=== PATIENT | female | born 1955 | race Caucasian/White ===

== ENCOUNTER 2023-05-18 12:26 | Outpatient (CLI) | payer OTHER, SELFPAY ==
--- NOTE | 2023-05-18 12:30 | ECG_ITS ---
Measurements Intervals [place] Rate: 83 P: 57 [place]: 199 QRS: -37 QRSD: 104 T: 23 QT: 368 QTc: 433 Interpretive Statements SINUS RHYTHM LEFT AXIS DEVIATION LOW QRS VOLTAGE IN PRECORDIAL LEADS INCOMPLETE RIGHT BUNDLE BRANCH BLOCK BASELINE ARTIFACT- I, II, III, AVR, AVL, AVF, V3 BORDERLINE ECG NO PREVIOUS ECG AVAILABLE FOR COMPARISON Electronically Signed On 05-18-2023 12:51:08 CDT by Sanjeev Rashid D.O.
[2023-05-18 13:06] LABS: Anion Gap 6 mmol/L (8-16); Blood Urea Nitrogen 24 mg/dL (7-17); Calcium 9.7 mg/dL (8.4-10.2); Carbon Dioxide 29 mmol/L (22-30); Chloride 104 mmol/L (98-107); Estimated Glomerular Filt Rate > 60; Glucose 89 mg/dL (65-110); Potassium 4.1 mmol/L (3.4-5.0); Sodium 139 mmol/L (137-145)
[2023-05-18 13:07] LABS: Alanine Aminotransferase 30 U/L (6-35); Albumin Level 4.5 g/dL (3.5-5.1); Alkaline Phosphatase 92 U/L (38-126); Amylase 67 U/L (30-110); Aspartate Amino Transferase 27 U/L (14-36); Bilirubin,Total 0.5 mg/dL (0.2-1.3); Lipase 70 U/L (23-300)
== END 2023-05-18 12:27 | disposition home or self-care (01) ==
LOC: ANHSURGERY 12:31
PROVIDERS: Anesthesiology; PCP Internal Medicine; Visit Provider Surgery
DX: Z01.818 Encounter for other preprocedural examination (principal); Z79.899 Other long term (current) drug therapy; I10 Essential (primary) hypertension; K80.20 Calculus of gallbladder without cholecystitis without obstruction; I45.19 Other right bundle-branch block; R94.31 Abnormal electrocardiogram [ECG] [EKG]
CPT/HCPCS: 36415; 80048; 80076; 82150; 83690; 86850; 86900; 86901; 93005

== ENCOUNTER 2023-05-19 02:48 | Day surgery (SDC) | payer OTHER, SELFPAY ==
[2023-05-10 10:59] VITALS: BMI 54.4
--- NOTE | 2023-05-10 11:11 | PC.NURSE ---
PRE-OP INSTRUCTIONS, PLEASE READ CAREFULLY Report to the Outpatient Waiting Room, entrance under the green pavilion located off [facility], at time _0730_ on date _05/19/23_. Planned Procedure Time: _0930_. Time changes happen often and if your time is changed the preop area will call you the afternoon before. - You and your visitor will be asked to self-screen and do not enter if you have any COVID symptoms. - A mask is optional within the hospital at this time. Patients may have clear liquids (water, carbonated beverages, clear teas, apple juice) until 3 hours prior to surgery (0630 AM) with a maximum of 20 ounces. - No food from midnight until time of surgery Take the following medications with a SIP of water the morning of surgery: _INHALER, BUSPIRONE, DULOXETINE, GABAPENTIN, & LORAZEPAM, ALBUTEROL INHALER IF NEEDED_ DO NOT STOP ANY OF YOUR OTHER PRESCRIPTION MEDICATIONS PRIOR TO SURGERY ?EXCEPT THE FOLLOWING Medications to discontinue per ANESTHESIA - _MULTIVITAMIN 3 DAYS PRIOR TO SURGERY, Date to take last dose 05/15/23_ Please no make-up, nail vietnamese, hairspray, perfume, deodorant, or body powder the day of surgery. No jewelry (including any body piercings) or valuables the day of surgery, leave them at home. Please take a shower or bath the night before, or the morning of, surgery with an antibacterial soap. Wear comfortable, loose fitting clothing. - Jewelry must be removed prior to entering the operating room. Rings and piercings that are not removed may be cut off. - The hospital will not accept responsibility for valuables. - Please leave all valuables, including medications, at home the day of surgery. If you are going home after surgery, a licensed medical driver must drive you home. - NO public transportation without another adult if you receive anesthesia. - We recommend that an adult stay with you for 24 hours following discharge. - We also recommend that you do not drive, make important decision, drink alcoholic beverages, or take any drugs that were not prescribed by your health care provider for at least 24 hours after your discharge time. Follow any additional instructions given to you from your surgeon. If you or anyone in your household have experienced Covid symptoms in the past week, please notify your surgeon or the nurse liaison at the phone number below for possible testing. Telephone instructions given to _PATIENT_and asked if any additional questions and then verbalized understanding. Patient advised to call surgeon office or pre surgery nurse liaison [phone] if any additional questions.
[2023-05-19] VITALS (22 sets, daily range): BP systolic 129–187; BP diastolic 59–99; PULSE 59–97; RESP 12–26; TEMP 36.1–36.6; O2SAT 92–100
[2023-05-19] MEDS: INDOCYANINE GREEN 25 MG VIAL WITH DILUENT 3.75 MG IV PUSH (08:00)
[2023-05-19] MEDS: LACTATED RINGERS 1,000 ML 30 ML IV CONT ×2 (08:00→11:37)
--- NOTE | 2023-05-19 08:54 | WPDANESEPPF ---
Anes - Initial Pre Proc Eval Procedure: Operation Date: 05/19/23 09:30 Proposed Procedures p Laparoscopic Cholecystectomy Davinci Assisted - Eliceo Jerry DO Date/Time: 05/19/23 08:54 Surgeon: Eliceo Jerry DO Pre Op Diagnosis: symptomatic cholelithiasis Patient Data Age: 68 Gender: F Height: 1.47 m Weight: 118.18 kg Allergies Allergy/AdvReac Type Severity Reaction Status Date / Time azithromycin Allergy Severe RASH Verified 05/10/23 10:52 Penicillins Allergy Severe THROAT Verified 05/10/23 10:52 SWELLING Home Medications Medication Instructions Recorded Confirmed Type albuterol (refill) 90 90 mcg inhalation PRN PRN Wheezing 04/29/23 05/10/23 History mcg/actuation aerosol inhaler budesonide-formoterol HFA 160 1 inh inhalation ONCE 04/29/23 05/10/23 History mcg-4.5 mcg/actuation aerosol inhaler (Symbicort) buspirone 15 mg tablet 15 mg PO DAILY 04/29/23 05/10/23 History cholecalciferol (vitamin D3) 50 50 mcg PO DAILY 04/29/23 05/10/23 History mcg (2,000 unit) capsule duloxetine 60 mg capsule,delayed 60 mg PO BID 04/29/23 05/10/23 History release furosemide 20 mg tablet 20 mg PO QAM 04/29/23 05/10/23 History gabapentin 300 mg capsule 300 mg PO BID 04/29/23 05/10/23 History lisinopril 20 mg tablet 20 mg PO DAILY 04/29/23 05/10/23 History loratadine 10 mg tablet (Allergy 10 mg PO DAILY 04/29/23 05/10/23 History Relief (loratadine)) lorazepam 1 mg tablet 1 mg PO DAILY PRN Anxiety 04/29/23 05/10/23 History magnesium oxide 400 mg PO DAILY 04/29/23 05/10/23 History multivitamin 1 tablet PO DAILY 04/29/23 05/10/23 History omeprazole 40 mg capsule,delayed 40 mg PO DAILY 04/29/23 05/10/23 History release oxybutynin chloride 15 mg 15 mg PO DAILY 04/29/23 05/10/23 History tablet,extended release 24 hr rosuvastatin 10 mg tablet 10 mg PO DAILY 04/29/23 05/10/23 History spironolactone 25 mg tablet 25 mg PO DAILY 04/29/23 05/10/23 History trazodone 50 mg tablet 50 mg PO QHS PRN Sleep 04/29/23 05/10/23 History Patient hx anesthesia problems: none Family hx anesthesia problems: none Results Review: All pre-operative results and documents have been reviewed as part of the pre-operative evaluation. [facility] Past Medical History Medical History (Updated 04/29/23 @ 14:17 by Bisi Lemus) Asthma Depression with anxiety High cholesterol Hypertension Surgical History Surgical History History of delivery History of foot surgery History of hysterectomy History of left knee replacement History of spinal fusion S/P insertion of spinal cord stimulator Family History Family History Father Acute myocardial infarction Diabetes mellitus Mother Cerebrovascular accident Social History Social History Smoking packs per day: 1 Smoking cigarettes per day: 20.0 Years smoked: 34 Smoking pack-years: 34.00 Smoking status: Former smoker Tobacco type: cigarettes Second hand tobacco smoke exposure: No Smoking end date: 09/01/93 Alcohol intake: current Alcohol use details: VERY RARE - STATES 1 DRINK ON NEW YRS [facility]IZ[facility] Substance use: never Substance use type: does not use Living arrangements: with family Occupation/Education: retired Spiritual care concerns: No Anes - Eval Final PreProcedure Day of Procedure 05/19/23 08:54 Patient weight: super morbidly obese Heart: regular rate and rhythm Lungs: clear to auscultation Airway: Mallampati scale class III Neurological: alert and oriented Last oral intake: >/= 8 hours ASA classification: IV Emergent: no Anesthetic plan: proceed Anesthesia type and monitoring: general ETT and standard monitoring Results Review: All pre-operative results and documents have been reviewed as part of the pre-operative evaluation. In
--- NOTE | 2023-05-19 09:09 | WPDHPUPDATE1 ---
History and Physical Update Update Date/Time: 05/19/23 09:09 History and Physical has been reviewed, including an updated exam of the patient. There are NO changes in the patient's condition. Risks, benefits, and alternatives have been discussed and questions answered. Patient agrees to proceed with procedure.
[2023-05-19] MEDS: KETOROLAC 15 MG/ML VIAL (*BKC) IV PUSH (09:37)
[2023-05-19] MEDS: ACETAMINOPHEN 500 MG TABLET 1000 MG PO (09:37)
[2023-05-19] MEDS: ceFAZolin 2 GM/D5W 50 ML 2 GM/50 ML BAG IVPB ×2 (09:48→19:54)
[2023-05-19] MEDS: BUPIVACAINE/EPINEPHRINE 0.5% 30 ML VIAL INFILTRATE (10:34)
--- NOTE | 2023-05-19 11:34 | W.PM.PROC2 ---
Procedure Note - Detailed Date of Procedure 05/19/23 Pre-op Diagnosis symptomatic cholelithiasis Post-op Diagnosis Same Procedure Performed 1. Laparoscopic cholecystectomy with cholangiography, da Douglas assisted 2. Interpretation of cholangiography Surgeon Eliceo Jerry DO Anesthesia General and Local (0.5% bupivacaine) Indications This is a 68-year-old woman who presented with symptomatic cholelithiasis. She was experiencing right upper quadrant pain after eating and she had undergone a CT abdomen and pelvis which showed evidence of cholelithiasis. Discussions were made with the patient about treatment options and decision was made to proceed with robotic assisted laparoscopic cholecystectomy with cholangiography, possible open. Findings Robotic assisted laparoscopic cholecystectomy with cholangiography was performed. Patient was given 1.5 mL of ICG intravenously preop. Near infrared fluorescent imaging was utilized intraoperatively to identify the gallbladder neck, cystic duct, and common bile duct. This allowed me to safely identify the critical anatomy and critical view of safety. The gallbladder had several pericholecystic adhesions and also had several large gallstones within the body and neck of the gallbladder. The cystic duct appeared to taper down to normal size. No other intra-abdominal abnormalities were noted. The gallbladder was removed and sent to the lab for pathology. Description of Procedure Procedure as well as risks, benefits, and alternatives were discussed with the patient. Written consent was obtained and placed in chart prior to procedure. 1.5 mL of indocyanine green was given intravenously in preop. Patient was brought back to surgical suite. She was placed supine on operating table. Time-out was done to confirm patient and procedure. She was then intubated by the anesthesia department. Her abdomen was then prepped and draped in sterile fashion using chlorhexidine prep. 0.5% bupivacaine was infiltrated locally at the site of each port placement. An 8 mm incision was made just superior to the umbilicus and a 5 mm Optiview trocar was then advanced through the abdominal layers under direct visualization. Once inside the abdominal cavity, carbon dioxide insufflation was used to create a pneumoperitoneum. The camera was inserted and the abdomen was inspected. No mediated abnormalities were noted. The patient was placed in 10? reverse Trendelenburg position and rotated 10? to the left. Two 8 mm incisions were made in the right lateral abdomen and 2 8 mm trocars were inserted under direct visualization. A 12 mm incision was made in the left lateral abdomen and a 12 mm trocar was inserted under direct visualization. The 5 mm Optiview trocar was then removed and another 8 mm trocar was inserted in its place. The robotic arms were then brought up to the patient's bedside and secured to each port. The camera and instruments were inserted. I then moved over to the robotic consult to take control of the camera and instruments. The gallbladder was grasped at the fundus and retracted cephalad. The infundibulum of the gallbladder was then grasped and retracted laterally. Hook electrocautery was then used to carefully dissect around the neck of the gallbladder. The cystic duct was identified and a window was created around it using hook electrocautery. The cystic artery was also identified and a window was created behind it using hook electrocautery. Critical view of safety was identified visualizing the cystic duct running directly into the neck of the gallbladder and the cystic artery running directly into the wall the gallbladder. The camera view was switched to firefly mode and the indocyanine green within the gallbladder and cystic duct was clearly visualized. No other structures were noted running into this region and there did not appear to be any obstruction of the cystic duct impeding flow of bile into the gallbladder
[2023-05-19] MEDS: fentaNYL CITRATE INJ (*CRX) 100 MCG/2 ML VIAL 25 MCG IV PUSH ×6 (12:21→15:41)
[2023-05-19] MEDS: oxyCODONE HCL (*CRX) 5 MG TAB IR PO (13:40)
--- NOTE | 2023-05-19 16:03 | SUR.PHASEII ---
1553, patient is rating pain 8/10 despite giving IV pain medication. MD Leung aware and no new orders received. MD So is aware of post-op pain and will admit patient.
--- NOTE | 2023-05-19 18:53 | PC.NURSE ---
Message left to care coordination in regards to suicide scale.
[2023-05-19] MEDS: DULoxetine HCL 60 MG CAPSULE.DR PO (19:54)
[2023-05-19] MEDS: GABAPENTIN 300 MG CAPSULE PO (19:54)
[2023-05-19] MEDS: ROSUVASTATIN 10 MG TABLET PO (19:54)
[2023-05-19] MEDS: PANTOPRAZOLE 40 MG TABLET PO (19:54)
[2023-05-19] MEDS: LACTATED RINGERS 1,000 ML 100 ML IV CONT (19:55)
[2023-05-19] MEDS: traZODone HCL 50 MG TABLET PO (19:58)
[2023-05-20] MEDS: oxyCODONE/ACETAMINOPHEN (*CRX) 5-325 MG TABLET 1 TABLET PO (00:31)
[2023-05-20] MEDS: ceFAZolin 2 GM/D5W 50 ML 2 GM/50 ML BAG IVPB ×2 (02:55→10:28)
[2023-05-20 05:35] LABS: Hematocrit 38.5 % (37.0-47.0); Hemoglobin 12.8 g/dL (12.0-15.0); Mean Corpuscular HGB Conc 33.2 g/dl (32-36); Mean Corpuscular Hemoglobin 31.8 pg (26-34); Mean Corpuscular Volume 95.8 fl (80-100); Mean Platelet Volume 9.2 fl (7.4-10.4); Platelet Count Result 286 k/mm3 (150-375); Red Blood Count 4.02 M/mm3 (4.2-5.4); Red Cell Distribution Width 12.5 % (11.5-14.5); White Blood Count 10.6 K/mm3 (4.5-10.0)
[2023-05-20 05:45] LABS: Anion Gap 4 mmol/L (8-16); Blood Urea Nitrogen 24 mg/dL (7-17); Calcium 9.2 mg/dL (8.4-10.2); Carbon Dioxide 28 mmol/L (22-30); Chloride 103 mmol/L (98-107); Estimated Glomerular Filt Rate > 60; Glucose 113 mg/dL (65-110); Potassium 4.4 mmol/L (3.4-5.0); Sodium 135 mmol/L (137-145)
[2023-05-20 05:48] VITALS: BP 138/56; PULSE 77; RESP 16; TEMP 36.1; O2SAT 96
[2023-05-20] MEDS: oxyCODONE/ACETAMINOPHEN (*CRX) 10-325 MG TABLET 1 TAB PO (06:16)
[2023-05-20] MEDS: ENOXAPARIN 40 MG/0.4 ML SYRINGE SUB-Q (08:03)
[2023-05-20] MEDS: GABAPENTIN 300 MG CAPSULE PO (08:04)
[2023-05-20] MEDS: PANTOPRAZOLE 40 MG TABLET PO (08:04)
[2023-05-20] MEDS: oxyBUTYnin CHLORIDE XL 5 MG TAB.ER.24 15 MG PO (08:04)
[2023-05-20] MEDS: MAGNESIUM OXIDE 400 MG TABLET PO (08:04)
[2023-05-20] MEDS: lisinopriL 20 MG TABLET PO (08:04)
[2023-05-20] MEDS: busPIRone HCL 5 MG TABLET 15 MG PO (08:04)
[2023-05-20] MEDS: SPIRONOLACTONE 25 MG TABLET PO (08:04)
[2023-05-20] MEDS: FUROSEMIDE 20 MG TABLET PO (08:04)
[2023-05-20] MEDS: LORATADINE 10 MG TABLET PO (08:04)
[2023-05-20 09:27] VITALS: BP 134/63; PULSE 66; RESP 18; TEMP 37; O2SAT 95
[2023-05-20] MEDS: DULoxetine HCL 60 MG CAPSULE.DR PO (10:32)
--- NOTE | 2023-05-20 11:11 | PM.DS ---
DS: Admitting Diagnosis Discharge Date 05/20/2023 Admitting Diagnosis Symptomatic cholelithiasis DS: Discharge Diagnosis Discharge Diagnosis (1) Symptomatic cholelithiasis: Code(s): K80.20 - Calculus of gallbladder without cholecystitis without obstruction Status: Acute (2) REBEKAH on CPAP: Code(s): G47.33 - Obstructive sleep apnea (adult) (pediatric) Status: Acute (3) Hypertension: Code(s): I10 - Essential (primary) hypertension Status: Acute DS: Summary Hospital Course Reason for hospitalization: Symptomatic cholelithiasis Hospital Course: This is a 68-year-old woman who presented for robotic assisted laparoscopic cholecystectomy on 05/19/2023. She had been experiencing significant right upper quadrant pains after eating for the past several months. CT had shown evidence of multiple gallstones. Surgery was uncomplicated but patient was experiencing significant postoperative pain and this was difficult to control with oral pain medications in recovery. She was admitted for outpatient extended recovery. Her pain was controlled with oral and IV pain medications. Her diet and activity were gradually advanced as tolerated. On postop day 1 her pain was much better controlled with oral pain medications. She was remaining hemodynamically stable and up ambulating to the bathroom with minimal assistance. She was discharged on 05/20/2023. Status at Discharge Functional status at discharge: uses cane/walker Overall status at discharge: patient is progressing back to baseline Time Spent with Patient Time attestation: Total time spent providing and/or coordinating discharge services: Time spent: Less than 30 minutes Exam Const: General: comfortable and no acute distress Orientation/consciousness: patient oriented x3 GI: Inspection: incision (Intact with glue, mild ecchymosis at left lateral incision) GI Palp: Yes Soft to palpation, Yes Tenderness to palpation present (GI) (Incisional) and No Guarding due to palpation present (GI) DS: Data Data Completed and Pending Pending studies at discharge: Pending at discharge 05/19/23 10:21 Surgical [PTH] Routine Labs on day of discharge: Labs from last 24 hours 05/20/23 05:25 WBC 10.6 H RBC 4.02 L Hgb 12.8 Hct 38.5 MCV 95.8 MCH 31.8 MCHC 33.2 RDW 12.5 Plt Count 286 MPV 9.2 Sodium 135 L Potassium 4.4 Chloride 103 Carbon Dioxide 28 Anion Gap 4 L BUN 24 H Creatinine 0.90 Estim Creat Clear Calc Not Reportable Estimated GFR > 60 Glucose 113 H Calcium 9.2 Discharge Plan Discharge Patient Disposition: Home, Self-Care Discharge Instructions: DISCHARGE INSTRUCTION SHEET FOR HERNIA, GALLBLADDER AND APPENDIX SURGERIES DR. RYAN PATIENT TO TAKE HOME 1. May shower, no soaking in bath x 2weeks. 2. Call office for: Wound increasingly painful or bleeding Vomiting Fever of greater than 101 degrees 3. If no bowel movement for three days, take 1 oz. (30 ml) Milk of Magnesia or MiraLax 17g 1 to 2 times daily. 4. No heavy lifting > 10-15 pounds x weeks for hernia repairs and 2 weeks for laparoscopic cholecystectomy or appendectomy. 5. No driving for 3 days or while taking narcotic pain medications. 6. Ice to surgical site for 48 hours (30 min on, then 30 min off). 7. Up walking 10-30 minutes three times per day. 8. Resume previous home medications. 9. Follow-up 10-14 days in office for wound check or as previously scheduled. [phone] 10. Oral pain medications prescription to be sent to pharmacy. Take Tylenol 500mg every 6 hours and Ibuprofen 600mg every 6 hours for the first 2 days, then as needed. 11. NUTRITION: Start out by drinking fluids and increase your diet as tolerated. If you experience nausea, try dry toast, crackers, and 7-UP. If nausea or vomiting persists, contact your surgeon?s office. 12. Gallb
== END 2023-05-20 13:00 | disposition home or self-care (01) ==
LOC: ANHSURGERY 13:58 → ANH3MED 17:51
PROVIDERS: PCP Internal Medicine; Referring Provider Internal Medicine Gastroenterology; Visit Provider Surgery
PROC: 0FT44ZZ Resection of Gallbladder, Percutaneous Endoscopic Approach (ICD-10-PCS; CPT 47562; principal; 2023-05-19 09:30)
DX: K80.10 Calculus of gallbladder with chronic cholecystitis without obstruction (principal); I10 Essential (primary) hypertension; J45.909 Unspecified asthma, uncomplicated; F41.8 Other specified anxiety disorders; E78.00 Pure hypercholesterolemia, unspecified; G47.33 Obstructive sleep apnea (adult) (pediatric); E66.01 Morbid (severe) obesity due to excess calories; Z68.43 Body mass index [BMI] 50.0-59.9, adult; Z79.51 Long term (current) use of inhaled steroids; Z79.82 Long term (current) use of aspirin; Z98.890 Other specified postprocedural states; Z98.1 Arthrodesis status; Z87.891 Personal history of nicotine dependence; Z82.49 Family history of ischemic heart disease and other diseases of the circulatory system
CPT/HCPCS: 47563; 74300; S2900; 36415; 80048; 80076; 82150; 83690; 85027; 86850; 86900; 86901; 88304; 93005; A9270; J0330; J0690; J1100; J1650; J1885; J2405; J2704; J3010; J7120